=== PATIENT | male | born 1985 | race African-American/Black ===

== ENCOUNTER 2020-12-26 12:39 | Emergency (ER) | payer BC, SELFPAY ==
[2020-12-26 13:14] VITALS: BP 133/82; PULSE 87; RESP 16; TEMP 36.6; O2SAT 99; BMI 34.7
--- NOTE | 2020-12-26 13:26 | ED.EYEPROB ---
HPI - Eye Problem General Chief complaint: Eye Problems Stated complaint: EYE ISSUE Time Seen by Provider: 12/26/20 13:25 Source: patient Limitations: no limitations History of Present Illness HPI Narrative: Patient states he was working and had his eye protection on what he thinks something went into his eye. Patient states he was drooling. Patient states it is itchy and watery and painful. No other complaints at this time. chief complaint: eye pain Onset (ago): minute(s) Related Data Previous Rx's Medication Instructions Recorded albuterol sulfate 2 puff INHALATION Q6H PRN #6.7 g 12/26/20 sulfacetamide sodium [Bleph-10] 2 drp OPHTHALMIC-RIGHT TID 5 Days 12/26/20 #5 ml sulfacetamide sodium [Bleph-10] 2 drp OPHTHALMIC-RIGHT TID 5 Days 12/26/20 #5 ml Allergies Allergy/AdvReac Type Severity Reaction Status Date / Time No Known Allergies Allergy Verified 12/26/20 13:16 Review of Systems Review of Systems: Constitutional : No Weight loss, No Fever, No Chills, No Night Sweats, No Fatigue, No Malaise Eyes: Right eye pain tearing foreign body sensation Gastrointestinal : No Nausea, No Vomiting Musculoskeletal : No joint pain, No Myalgias, No Joint SwellingSkin : No Skin Lesions, No rash Neuro : No Weakness, No Numbness, No Paresthesias, No Loss of Consciousness, No Dizziness, No Headache Heme/Lymph: No Bruising, No Bleeding,No Lymphadenopathy PMFSH Past Medical History Attestation statement: The following information was validated with the patient. Medical History No known health problems Social History Social History Advance Directives: No Advance Directives Information Provided: No Physical Exam Vital Signs: Vital Signs: Last Vital Signs Temp 97.9 F 12/26/20 13:14 Pulse 87 12/26/20 13:14 Resp 16 12/26/20 13:14 BP 133/82 12/26/20 13:14 Pulse Ox 99 12/26/20 13:14 Body Mass Index 34.7 vital signs have been reviewed as normal and appeared to be correct. Blood pressure normal. Heart rate normal. Respiration rate normal. Temperature normal. Oxygen saturation normal. Appearance: Alert. Oriented X3. No acute distress. Head: Normal external exam. Normocephalic. Atraumatic. No Marie signs noted. No raccoon eyes noted Eyes: Pupils are equal round reactive light and accommodation extraocular movement is clear is injected positive in no obvious foreign body visualized and will do fluorescein stain ENT: Oropharynx is clear Neck: Soft full range of motion, no JVD CVS: Heart regular rate and rhythm no murmurs and rubs Respiratory: Breath sounds are clear to auscultation bilaterally. No accessory muscle use noted. Skin: Skin warm and dry. Normal skin color. Normal skin turgor. No rashes/lesions/lacerations noted. Extremities: Patient is ambulatory moving all extremities Neuro: Oriented X 3. No motor deficit. No sensory deficit. Reflexes normal. Course Course Course Narrative: Right eye foreign body sensation versus corneal abrasion will do fluorescein stain at this time 2 drops tetracaine applied. No corneal abrasion visualized no rust ring present. No foreign body visualized. Patient is also requesting a refill of his albuterol inhaler which she has taken in the past. Patient is unsure if his eye symptoms are not related to his allergies. Patient instructed if symptoms do not improve follow-up with ophthalmology Discharge Plan Discharge Clinical Impression: Sensation of foreign body in eye Patient Disposition: Home, Self-Care Instructions: Eye Foreign Body (ED) Additional Instructions: No foreign body was visualized in your right eye. Fluorescein stain for corneal abrasion was negative. Prescriptions: New sulfacetamide sodium [Bleph-10] 10 % drops 2 drp ophthalmic-Right TID 5 Days Qty: 5 RF: 0 albuterol sulfate 90 mcg/actuation HFA aerosol inhaler 2 puff inhalation Q6H PRN (Reason: wheezing ) Qty: 6.7 RF: 0 sulfacetamide sodium [Bleph-10] 10 % drops 2 drp ophthalmic-Right TID 5 Days Qty: 5 RF: 0 Referrals: Darrin Cruz [Physician] - 2 days Stand Alone Forms: Work/School Release Interventions: ED Discharge Assessment Last Done: 12/26/20 14:05 Discharge Date/Time: 12/26/20 14:06
[2020-12-26] MEDS: Tetracaine HCl/PF 0.5% Oph Sol 4 ML DROPS 3 DROP EYE-RIGHT (13:30)
[2020-12-26] MEDS: Fluorescein Sodium STRIP 1 STRIP EYE-RIGHT (13:30)
== END 2020-12-26 14:06 | disposition home or self-care (01) ==
PROVIDERS: Emergency Provider Emergency Medicine
DX: H57.11 Ocular pain, right eye (principal); Z79.899 Other long term (current) drug therapy
CPT/HCPCS: 99283